=== PATIENT | male | born 1930 | race Caucasian/White ===

== ENCOUNTER 2017-02-18 10:15 | Inpatient (IN) | payer MEDICARE ==
[~2017-02-18] VITALS: Ht 177.8 cm; Wt 61.8 kg
[~2017-02-18 10:15] MED LIST: ALEVE220 M1 PO; ALLEGRA-D 2424 HOUR PO; AUGMENTIN500TAB PO; AZITHROMYCIN500 MG PO; BENZONATATE200 MG PO; C 250 PO; CALCIUM + D PO; CALCIUM PO; CALCIUM500 MG/D PO; CENTRUM SILVER PO; CENTRUM SILVER ULTR1 PO; CETIRIZ/PSE1 TAB PO; COMBIVENT IN; CRESTOR10 MG OR; ENALAPRIL10 MG PO; FLONASE NASAL50 MCG; FLONASE0.05 %; FLUARIX QUADRIV1 IN2 IM; FLUARIX QUADRIV1 INJ IM; FLULAVAL IM; FUROSEMIDE20 MG PO; LIPITOR10 MG PO; LIPITOR40 M1 PO; LIPITOR40 MG PO; LOMOTIL2.5 MG PO; LOPRESSOR 550 MG/TAB PO; MEDDOSEPAK PO; MELATONIN10 MG PO; METOPROL TAR50 MG PO; METRONIDAZOL500 MG PO; MUCINEX600 MG PO; NASONEX50 MCG/AC NAB; NASONEX50 MCG/AC NAS; OMEPRAZOLE20 MG OR; OMEPRAZOLE20 MG PO; PRILOSEC20 MG PO; PROAIR HFA IN; PROCTOZONE-HC2.5 % RE; PROCTOZONE1 CRE RE; ST JOSEPH75 MG OR; TYLENOL 500MG TAB PO; TYLENOL PM PO; VASOTEC10 MG PO; VENTOLIN HF1 INH; VENTOLIN HFA IN; VITAMIN C PO; ZITHROMAX250 MG PO; ZPAK PO; ZYRTEC-D ALG PO; ZYRTEC10 MG PO; [UNRECOGNIZED DRUG - OTHER] PO; [UNRECOGNIZED DRUG - OTHER] PO; [UNRECOGNIZED DRUG - OTHER] PO; [UNRECOGNIZED DRUG - OTHER] PO
[2017-02-18] MEDS ORDERED: PLAVIX75 MG PO (10:32)
[2017-02-18] MEDS ORDERED: CARVEDILOL25 MG PO (10:33)
[2017-02-18] MEDS ORDERED: ZESTRIL40 MG PO (10:33)
[2017-02-18] MEDS ORDERED: BREO ELLIPTA1 INH (10:34)
[2017-02-18] MEDS ORDERED: PREDNISONE10 MG PO (10:34)
[2017-02-18 10:59] LABS: HEMATOCRIT 40.6 % (39.0-50.0); HEMOGLOBIN 13.6 g/dl (14.0-18.0); IMMATURE GRANULOCYTES 0.5 % (0.0-1.0); MEAN CELL VOLUME 95.1 fL CALC (80.0-100.0); MEAN CORPUSCULAR HGB 31.9 pG CALC (26.0-32.0); MEAN CORPUSCULAR HGB CONC 33.5 g/L CALC (32.0-36.0); NEUT# 10.87 thou/uL (1.82-7.42); RED BLOOD COUNT 4.27 mill/uL (4.70-6.10); RED CELL DISTRI WIDTH 13.9 % (11.5-15.5)
[2017-02-18 11:14] LABS: ALBUMIN 3.9 g/dL (3.2-5.0); ALKALINE PHOSPHATASE 78 u/l (38-126); ANION GAP 16 (6-22 (CALC)); BILIRUBIN, TOTAL 0.8 mg/dL (0.0-1.4); BUN 19 mg/dL (8-23); BUN/CREATININE RATIO 19 (12-20 (CALC)); CALCIUM 9.3 mg/dL (8.4-10.2); CARBON DIOXIDE 25 mmol/l (22-30); CHLORIDE 105 mmol/l (95-108); GFR > 60 ML/MIN (>=60 (CALC)); GFR FOR AFR.AMER. > 60 ML/MIN (>=60 (CALC)); GLUCOSE 109 mg/dL (82-115); POTASSIUM 4.4 mmol/l (3.5-5.1); SGOT/AST 28 u/l (19-48); SGPT/ALT 30 u/l (11-66); SODIUM 141 mmol/l (137-146); TOTAL PROTEIN 7.2 g/dL (6.3-8.2)
[2017-02-18 11:19] LABS: INFLUENZA A NONE DETECTED (NONE DETECT); INFLUENZA B NONE DETECTED (NONE DETECT)
[2017-02-18 13:23] LABS: URINE BILIRUBIN - DIPSTICK NEGATIVE (NEGATIVE); URINE BLOOD DIPSTICK NEGATIVE (NEGATIVE); URINE CLARITY CLEAR; URINE COLOR YELLOW; URINE GLUCOSE - DIPSTICK NEGATIVE (NEGATIVE); URINE KETONE NEGATIVE (NEGATIVE); URINE LEUK ESTERASE NEGATIVE (NEGATIVE); URINE NITRITE - DIPSTICK NEGATIVE (Negative); URINE PROTEIN - DIPSTICK NEGATIVE (NEG-TRACE); URINE UROBILINOGEN - DIPSTICK 0.2 E.U./dL (0.2)
[2017-02-18 14:13] VITALS: BP 126/63
[2017-02-18 15:41] LABS: CHOLESTEROL HDL RATIO 3.6 (<4.4 (CALC))
[2017-02-18 16:34] VITALS: BP 93/57
[2017-02-18 19:50] VITALS: BP 100/70
[2017-02-19] VITALS (7 sets, daily range): BP systolic 86–139; BP diastolic 43–80
[2017-02-19 05:45] LABS: HEMATOCRIT 34.2 % (39.0-50.0); HEMOGLOBIN 11.4 g/dl (14.0-18.0); IMMATURE GRANULOCYTES 0.7 % (0.0-1.0); MEAN CELL VOLUME 97.2 fL CALC (80.0-100.0); MEAN CORPUSCULAR HGB 32.4 pG CALC (26.0-32.0); MEAN CORPUSCULAR HGB CONC 33.3 g/L CALC (32.0-36.0); NEUT# 4.32 thou/uL (1.82-7.42); RED BLOOD COUNT 3.52 mill/uL (4.70-6.10); RED CELL DISTRI WIDTH 14.2 % (11.5-15.5)
[2017-02-19 06:04] LABS: ALBUMIN 2.7 g/dL (3.2-5.0); ALKALINE PHOSPHATASE 62 u/l (38-126); ANION GAP 11 (6-22 (CALC)); BILIRUBIN, TOTAL 0.6 mg/dL (0.0-1.4); BUN 15 mg/dL (8-23); BUN/CREATININE RATIO 17 (12-20 (CALC)); CALCIUM 8.3 mg/dL (8.4-10.2); CARBON DIOXIDE 22 mmol/l (22-30); CHLORIDE 112 mmol/l (95-108); CREATININE 0.9 mg/dL (0.7-1.3); GFR > 60 ML/MIN (>=60 (CALC)); GFR FOR AFR.AMER. > 60 ML/MIN (>=60 (CALC)); GLUCOSE 84 mg/dL (82-115); SGOT/AST 16 u/l (19-48); SGPT/ALT 28 u/l (11-66); SODIUM 142 mmol/l (137-146); TOTAL PROTEIN 5.1 g/dL (6.3-8.2)
[2017-02-20 04:53] VITALS: BP 138/80
[2017-02-20 05:56] LABS: HEMATOCRIT 34.4 % (39.0-50.0); HEMOGLOBIN 11.4 g/dl (14.0-18.0); IMMATURE GRANULOCYTES 0.4 % (0.0-1.0); MEAN CELL VOLUME 96.4 fL CALC (80.0-100.0); MEAN CORPUSCULAR HGB 31.9 pG CALC (26.0-32.0); MEAN CORPUSCULAR HGB CONC 33.1 g/L CALC (32.0-36.0); NEUT# 3.42 thou/uL (1.82-7.42); RED BLOOD COUNT 3.57 mill/uL (4.70-6.10); RED CELL DISTRI WIDTH 13.7 % (11.5-15.5)
[2017-02-20 06:12] LABS: ANION GAP 11 (6-22 (CALC)); BUN 12 mg/dL (8-23); BUN/CREATININE RATIO 16 (12-20 (CALC)); CALCIUM 8.3 mg/dL (8.4-10.2); CARBON DIOXIDE 23 mmol/l (22-30); CHLORIDE 111 mmol/l (95-108); CREATININE 0.8 mg/dL (0.7-1.3); GFR > 60 ML/MIN (>=60 (CALC)); GFR FOR AFR.AMER. > 60 ML/MIN (>=60 (CALC)); GLUCOSE 107 mg/dL (82-115); SODIUM 141 mmol/l (137-146)
[2017-02-20 09:12] VITALS: BP 126/63
[2017-02-20 11:31] VITALS: BP 154/85
[2017-02-20 16:39] VITALS: BP 116/74
[2017-02-20 19:00] VITALS: BP 143/80
[2017-02-20 22:00] VITALS: BP 129/77
[2017-02-21 05:02] VITALS: BP 137/80
[2017-02-21 05:48] LABS: ALBUMIN 2.9 g/dL (3.2-5.0); ALKALINE PHOSPHATASE 67 u/l (38-126); ANION GAP 13 (6-22 (CALC)); BILIRUBIN, TOTAL 0.6 mg/dL (0.0-1.4); BUN 8 mg/dL (8-23); BUN/CREATININE RATIO 10 (12-20 (CALC)); CALCIUM 8.6 mg/dL (8.4-10.2); CARBON DIOXIDE 22 mmol/l (22-30); CHLORIDE 111 mmol/l (95-108); CREATININE 0.8 mg/dL (0.7-1.3); GFR > 60 ML/MIN (>=60 (CALC)); GFR FOR AFR.AMER. > 60 ML/MIN (>=60 (CALC)); GLUCOSE 89 mg/dL (82-115); POTASSIUM 4.1 mmol/l (3.5-5.1); SGOT/AST 18 u/l (19-48); SGPT/ALT 32 u/l (11-66); SODIUM 141 mmol/l (137-146); TOTAL PROTEIN 5.3 g/dL (6.3-8.2)
[2017-02-21 05:50] LABS: HEMATOCRIT 35.8 % (39.0-50.0); HEMOGLOBIN 12.1 g/dl (14.0-18.0); IMMATURE GRANULOCYTES 0.4 % (0.0-1.0); MEAN CORPUSCULAR HGB 32.1 pG CALC (26.0-32.0); MEAN CORPUSCULAR HGB CONC 33.8 g/L CALC (32.0-36.0); NEUT# 3.56 thou/uL (1.82-7.42); RED BLOOD COUNT 3.77 mill/uL (4.70-6.10); RED CELL DISTRI WIDTH 13.5 % (11.5-15.5)
[2017-02-21 08:51] VITALS: BP 127/80
[2017-02-21] MEDS ORDERED: LEVAQUIN750 MG PO (08:54)
[2017-02-21] MEDS ORDERED: BRILINTA60 MG PO (08:55)
[2017-02-21 08:58] VITALS: BP 127/80
== END 2017-02-21 10:26 | disposition home or self-care (01) | DRG 194 ==
LOC: ED 10:15 → ED-I 13:10 → ED 13:27 → MS2 13:28
PROVIDERS: Family Medicine; ADMIT Internal Medicine Geriatric Medicine; ATTEND Internal Medicine Geriatric Medicine
DX: J18.9 Pneumonia, unspecified organism (principal); K62.5 Hemorrhage of anus and rectum; I11.0 Hypertensive heart disease with heart failure; I50.9 Heart failure, unspecified; I25.10 Atherosclerotic heart disease of native coronary artery without angina pectoris; J30.9 Allergic rhinitis, unspecified; Z95.1 Presence of aortocoronary bypass graft; Z95.5 Presence of coronary angioplasty implant and graft; T45.525A Adverse effect of antithrombotic drugs, initial encounter
CPT/HCPCS: Q9967

== ENCOUNTER 2017-05-04 07:25 | Inpatient (IN) | payer MEDICARE ==
[~2017-05-04] VITALS: Ht 177.8 cm; Wt 73.6 kg
[~2017-05-04 07:25] MED LIST changes: +BREO ELLIPTA1 INH; +BRILINTA60 MG PO; +CARVEDILOL25 MG PO; +LEVAQUIN750 MG PO; +PLAVIX75 MG PO; +PREDNISONE10 MG PO; +ZESTRIL40 MG PO
--- NOTE | 2017-05-04 07:25 | NUR ---
TO ROOM 10 VIA STRETCHER BY EMS. ALERT. TALKATIVE
[2017-05-04] MEDS ORDERED: LIPITOR20 MG PO (07:50)
[2017-05-04] MEDS ORDERED: OMEPRAZOLE10 MG PO (07:51)
[2017-05-04 08:11] LABS: HEMATOCRIT 41.3 % (39.0-50.0); HEMOGLOBIN 13.7 g/dl (14.0-18.0); IMMATURE GRANULOCYTES 0.3 % (0.0-1.0); MEAN CELL VOLUME 96.5 fL CALC (80.0-100.0); MEAN CORPUSCULAR HGB CONC 33.2 g/L CALC (32.0-36.0); NEUT# 9.16 thou/uL (1.82-7.42); RED BLOOD COUNT 4.28 mill/uL (4.70-6.10); RED CELL DISTRI WIDTH 13.5 % (11.5-15.5)
--- NOTE | 2017-05-04 08:16 | NUR ---
pt given oral hydration, blanket, TV remote
--- NOTE | 2017-05-04 08:36 | NUR ---
pt resting comfortably at this time with family at side. Water given, remote for TV at bedside with call light.
[2017-05-04 08:39] LABS: ALBUMIN 3.9 g/dL (3.2-5.0); ALKALINE PHOSPHATASE 104 u/l (38-126); ANION GAP 16 (6-22 (CALC)); BILIRUBIN, TOTAL 0.6 mg/dL (0.0-1.4); BUN 13 mg/dL (8-23); BUN/CREATININE RATIO 14 (12-20 (CALC)); CALCIUM 9.4 mg/dL (8.4-10.2); CARBON DIOXIDE 24 mmol/l (22-30); CHLORIDE 108 mmol/l (95-108); CREATININE 0.9 mg/dL (0.7-1.3); GFR > 60 ML/MIN (>=60 (CALC)); GFR FOR AFR.AMER. > 60 ML/MIN (>=60 (CALC)); GLUCOSE 125 mg/dL (82-115); POTASSIUM 4.9 mmol/l (3.5-5.1); SGOT/AST 26 u/l (19-48); SGPT/ALT 27 u/l (11-66); SODIUM 143 mmol/l (137-146); TOTAL PROTEIN 6.4 g/dL (6.3-8.2)
[2017-05-04 08:47] LABS: MYOGLOBIN 45 ng/mL (0 - 121)
--- NOTE | 2017-05-04 08:53 | NUR ---
RESTING. DAUGHTER AT BEDSIDE. PERIODIC WET, NONPRODUCTIVE COUGH
[2017-05-04 09:11] LABS: INFLUENZA A POSITIVE (NONE DETECT); INFLUENZA B POSITIVE (NONE DETECT)
--- NOTE | 2017-05-04 09:52 | NUR ---
SBAR PRINTED TO FLOOR
--- NOTE | 2017-05-04 10:07 | NUR ---
REPORT RECVD FROM NIR HERNÁNDEZ. PT IN STABLE CONDITION IN ER ROOM 10. WAITING ON A ROOM UPSTAIRS.
--- NOTE | 2017-05-04 10:11 | NUR ---
REPORT CALLED TO JYOTI KAT
--- NOTE | 2017-05-04 10:11 | NUR ---
REPORT GIVEN TO DRISS
--- NOTE | 2017-05-04 10:32 | NUR ---
Admission Note Report Given to: SBAR PRINTED TO FLOOR Transported by: Wheelchair X Stretcher Transported with: X Nurse Transporter X Patent IV O2 Belt Tender
--- NOTE | 2017-05-04 10:35 | NUR ---
PT ARRIVED FROM ER VIA STRETCHER ACCOMPANIED BY STAFF. IV SITE IS FREE FROM REDNESS OR EDEMA. PT HAS WHEEZING THROUGH OUT. A VERY TIGHT COUGH. CONTINUE TO OSBERVE AND MONITOR.
[2017-05-04 10:40] VITALS: BP 124/77
--- NOTE | 2017-05-04 10:48 | NUR ---
OUT THE ER DOOR AT 1032. TRANSFERED TO [facility] IN STABLE CONDITION. RN @ BEDSIDE.
--- NOTE | 2017-05-04 12:00 | NUR ---
PT IS RESTING IN BED WITH NO DISTRESS NOTED. IV SITE IS FREE FROM REDNESS OR EDEMA. CONTINUE TO OSBERVE AND MONITOR.
--- NOTE | 2017-05-04 14:30 | NUR ---
PT IS RELAXING IN BED WITH NO DISTRESS NOTED.
[2017-05-04 15:36] VITALS: BP 143/72
--- NOTE | 2017-05-04 18:00 | NUR ---
MEDICATION GIVEN TO PT FOR HEADACHE, AND ALSO THE STEROID. CONTINUE TO OSBERVE AND MONITOR.
[2017-05-04 19:08] VITALS: BP 122/71
--- NOTE | 2017-05-04 19:30 | NUR ---
PT WATCHING TV, RESP EVEN AND UNLABORED WITH O2 2L IN PLACE. PT HAS EXERTIONAL SHORTNESS OF BREATH WHEN ASSISTED TO THE BATHROOM. PT ASSISTED BACK TO BED, O2 APPLIED. NO DISTRESS NOTED. WHEEZING IS NOTED THROUGHOUT. ABD IS SOFT, BOWEL SOUNDS PRESENT. PEDAL PULSES PALPATED BILAT. IV PATENT LFA WITH NS. PT DENIES ANY PAIN OR DISCOMFORT. FREQUENT ROUNDS MADE.CALL LIGHT WITHIN REACH. SAFETY PRECAUTIONS REINFORCED.
[2017-05-04 20:25] LABS: URINE BILIRUBIN - DIPSTICK NEGATIVE (NEGATIVE); URINE BLOOD DIPSTICK NEGATIVE (NEGATIVE); URINE CLARITY CLEAR; URINE COLOR YELLOW; URINE GLUCOSE - DIPSTICK NEGATIVE (NEGATIVE); URINE KETONE NEGATIVE (NEGATIVE); URINE LEUK ESTERASE NEGATIVE (NEGATIVE); URINE NITRITE - DIPSTICK NEGATIVE (Negative); URINE PROTEIN - DIPSTICK NEGATIVE (NEG-TRACE); URINE UROBILINOGEN - DIPSTICK 0.2 E.U./dL (0.2)
--- NOTE | 2017-05-05 00:20 | NUR ---
PT APPEARS TO BE ASLEEP AT THIS TIME. RESP EVEN AND UNLABORED, O2 IN PLACE. NO DISTRESS NOTED. CALL LIGHT WITHIN REACH.
[2017-05-05 04:04] VITALS: BP 151/82
--- NOTE | 2017-05-05 04:04 | NUR ---
PT WOKE FOR MORNING VITALS. PT HAS NO COMPLAINT OF PAIN OR DISCOMFORT. RESP EVEN AND UNLABORED WITH O2 IN PLACE. IV PATENT IN LFA. ASSESSMENT UNCHANGED. CALL LIGHT WITHIN REACH.
--- NOTE | 2017-05-05 06:04 | NUR ---
PT INSTRUCTED TO USE THE URINAL FOR ACCURATE I & O. PT DAILY WT; 73.6 KG.
--- NOTE | 2017-05-05 06:06 | NUR ---
PT IS HAVING SOME COUGHING. PT HAD SMALL AMOUNT OF THIN WHITE/YELLOW SPUTUM ON TISSUE. PT CONTINUING TO COUGH/WHEEZING, PRN BREATHING TX ORDERED. O2 IN PLACE.
--- NOTE | 2017-05-05 07:22 | NUR ---
REPORT GIVEN TO JYOTI KAT. PT RESING IN BED WITH O2 IN PLACE. NO DISTRESS NOTED. ASSESSMENT UNCHANGED. CALL LIGHT WITHIN REACH.
[2017-05-05 07:35] VITALS: BP 140/81
--- NOTE | 2017-05-05 08:00 | NUR ---
ASSESSMENT IS COMPLETED: IV SITE IS FREE FROM REDNESS OR EDEMA. PT IS WHEEZING THROUGH OUT. SOB ON EXERTION. C/O R RIB PAIN FROM COUGHING. CONTINUE TO OSBERVE AND MONITOR.
--- NOTE | 2017-05-05 09:00 | NUR ---
PT WAS LYING IN BED ON HIS RIGHT SIDE. PT WAS A&O X3. FACIAL GRIMACING WAS NOTED AND HE REPORTED A PAIN LEVEL OF 15/10, ONLY WHEN HE COUGHS. HE TURNED SUPINE AND WAS IN VISIBLE DISTRESS WHEN HE COUGHED. ASKED PT IF HE WANTED TO SIT UP IN BED AND HE STATED HE JUST WANTED TO TRY AND REST. UPON ENTERING THE ROOM A SHORT WHILE LATER THE PT WAS IN A SEMI-OLSEN POSITION, WAS CONTINUING TO COUGH AND HOLDING HIS ABDOMEN DUE TO PAIN WHEN COUGHING. VITAL WERE TAKEN AND WERE WITHIN NORMAL RANGE. LATER, HE WAS ABLE TO SIT UP AND EAT BREAKFAST STATING THAT HE FINALLY HAD AN APPETITE. PT ASSESSMENT WAS COMPLETED. PT WAS IN VISIBLE DISTRESS FROM COUGHING WHILE I WAS PERFORMING THE ASSESSMENT. WHEEZING NOTED IN LUNGS AND BREATHING WAS LABORED. PT IS AT 94% ON O2 VIA NC @2L. ALL PULSES WERE PRESENT AND STRONG, EXCEPT FOR PEDAL, WHICH WERE PRESENT, BUT SOMEWHAT WEAK. PT SKIN COLOR, TEMP, TURGOR AND CAPILLARY REFILL WERE NORMAL. NO EDEMA NOTED. BOWELS SOUNDS ACTIVE. PT HAS HISTORY OF CATARACTS, BUT PUPILS APPEARED PERRL. PAIN REPORTED NO PAIN EXCEPT WHEN COUGHING. HEART RATE AND RHYTHM WERE GOOD. PT PAIN WAS REPORTED TO NURSE NORTH LPN. PT WAS MEDICATED AND APPEARS TO BE RESTING MORE COMFORTABLY AT THIS TIME. PT BREATHING HAS IMPROVED FOLLOWING MEDICATION. NEB TREATMENT HAS BEEN ORDERED. CALL LIGHT WAS LEFT WITHIN REACH.
[2017-05-05 09:13] LABS: HEMATOCRIT 36.3 % (39.0-50.0); IMMATURE GRANULOCYTES 0.8 % (0.0-1.0); MEAN CELL VOLUME 96.3 fL CALC (80.0-100.0); MEAN CORPUSCULAR HGB 31.8 pG CALC (26.0-32.0); MEAN CORPUSCULAR HGB CONC 33.1 g/L CALC (32.0-36.0); NEUT# 11.17 thou/uL (1.82-7.42); RED BLOOD COUNT 3.77 mill/uL (4.70-6.10); RED CELL DISTRI WIDTH 13.7 % (11.5-15.5)
[2017-05-05 09:28] LABS: ANION GAP 14 (6-22 (CALC)); BUN 15 mg/dL (8-23); BUN/CREATININE RATIO 19 (12-20 (CALC)); CALCIUM 8.6 mg/dL (8.4-10.2); CARBON DIOXIDE 22 mmol/l (22-30); CHLORIDE 110 mmol/l (95-108); CREATININE 0.8 mg/dL (0.7-1.3); GFR > 60 ML/MIN (>=60 (CALC)); GFR FOR AFR.AMER. > 60 ML/MIN (>=60 (CALC)); GLUCOSE 194 mg/dL (82-115); MAGNESIUM 1.8 mg/dL (1.6-2.3); SODIUM 142 mmol/l (137-146)
[2017-05-05 11:45] VITALS: BP 140/81
--- NOTE | 2017-05-05 12:30 | NUR ---
PT HAS BEEN RELAXING IN BED WITH NO DISTRESS AT THIS TIME. IV SITE IS FREE FROM REDNESS O REDEMA.
--- NOTE | 2017-05-05 17:00 | NUR ---
PT IS RELAXING IN BED WITH NO DISTRESS NOTED. IV SITE IS FREE FROM REDNESS OR EDEMA. PT HAD A LARGE BM SOFT BROWN. VOIDING 500ML OF ESSIE UA
[2017-05-05 17:23] VITALS: BP 129/71
--- NOTE | 2017-05-05 20:00 | NUR ---
PATIENT RESTING IN BED AT THIS TIME WATCHING TV. PATIENT IS AWAKE ALERT AND ORIENTEDX3 WITH O2 VIA NASAL CANNULA IN PLACE. IVF NS PATENT AND INFUSING AT 80CC/HR VIA LEFT FOREARM SITE. SITE APPEARS HEALTHY AT THIS TIME WITH GOOD BLOOD RETURN. PATIENT WITH NON-PRODUCTIVE COUGH. PATIENT STATES THAT HE HAD A BM TONIGHT. O2 SAT 95% ON O2-WILL REMOVE AND RECHECK. SAFETY PRECAUTIONS REINFORCED. CALL LIGHT IN REACH. WILL CONT TO MONITOR.
[2017-05-05 20:13] VITALS: BP 122/75
[2017-05-05 23:50] VITALS: BP 149/88
--- NOTE | 2017-05-06 | NUR ---
PATEINT RESTING IN BED AT THIS TIME-APPEARS SLEEPING. CALL LIGHT IN REACH. WILL CONT TO MONITOR.
[2017-05-06 04:20] VITALS: BP 170/90
--- NOTE | 2017-05-06 04:49 | NUR ---
PATIENT BP-170/90 AT THIS TIME. PATIENT MEDICATED WITH LISINOPRIL AND LASIX PO EARLY FOR ELEVATED BP. PATIENT WITH NON-PRODUCTIVE COUGH-O2 REAPPLIED. OFFERED COUGH MED BUT PAIENT DECLINED AT THIS TIME. PATIENT COURSE THROUGHOUT. RT CALLED FOR NEB TREATMENT. WILL CONT TO MONITOR.
[2017-05-06 05:58] VITALS: BP 150/80
[2017-05-06 06:44] LABS: HEMATOCRIT 35.1 % (39.0-50.0); HEMOGLOBIN 11.5 g/dl (14.0-18.0); IMMATURE GRANULOCYTES 0.5 % (0.0-1.0); MEAN CELL VOLUME 96.4 fL CALC (80.0-100.0); MEAN CORPUSCULAR HGB 31.6 pG CALC (26.0-32.0); MEAN CORPUSCULAR HGB CONC 32.8 g/L CALC (32.0-36.0); NEUT# 9.72 thou/uL (1.82-7.42); RED BLOOD COUNT 3.64 mill/uL (4.70-6.10); RED CELL DISTRI WIDTH 13.7 % (11.5-15.5)
[2017-05-06 06:58] LABS: ANION GAP 16 (6-22 (CALC)); BUN 24 mg/dL (8-23); BUN/CREATININE RATIO 29 (12-20 (CALC)); CALCIUM 8.6 mg/dL (8.4-10.2); CARBON DIOXIDE 19 mmol/l (22-30); CHLORIDE 111 mmol/l (95-108); CREATININE 0.8 mg/dL (0.7-1.3); GFR > 60 ML/MIN (>=60 (CALC)); GFR FOR AFR.AMER. > 60 ML/MIN (>=60 (CALC)); GLUCOSE 155 mg/dL (82-115); MAGNESIUM 1.9 mg/dL (1.6-2.3); POTASSIUM 4.2 mmol/l (3.5-5.1); SODIUM 142 mmol/l (137-146)
--- NOTE | 2017-05-06 07:00 | NUR ---
RECEIVED BEDSIDE REPORT FROM ALISON LOYOLA. RESTING IN BED WITH EYES CLOSED, AWAKENS EASILY. RESPS EVEN AND UNLABORED ON O2 VIA NC. NON PRODUCTIVE COUGH CONTINUES. #22 LFA INFUSING WITHOUT DIFFICULTY, SITE APPEARS HEALTHY. WILL MEDICATE WITH ROBITUSSIN PER MAR. PLAN OF CARE DISCUSSED. SAFETY PRECAUTIONS REINFORCED. BED IN LOWEST POSITION WITH WHEELS LOCKED. CALL LIGHT WITHIN REACH. WILL CONTINUE TO MONITOR.
[2017-05-06 07:57] VITALS: BP 173/98
--- NOTE | 2017-05-06 11:25 | NUR ---
DR MARCELO IN WITH PT, NEW ORDERS RECEIVED.
[2017-05-06] MEDS ORDERED: AUGMENTIN875TAB PO (11:39)
[2017-05-06] MEDS ORDERED: MUCINEX600 MG PO (11:40)
--- NOTE | 2017-05-06 11:40 | NUR ---
TO RADIOLOGY IN STABLE CONDITION VIA WHEELCHAIR ACCOMPANIED BY AMY OLIVEIRA
[2017-05-06] MEDS ORDERED: ROBITUSSIN AC10 ML PO (11:41)
[2017-05-06] MEDS ORDERED: PREDNISONE20 MG PO (11:43)
--- NOTE | 2017-05-06 11:50 | NUR ---
FROM RADIOLOGY VIA WHEELCHAIR ACCOMPANIED BY BUSINESS SERVICES DIRECTOR. AMBULATED TO BED WITH STEADY GAIT. RESPS EVEN AND UNLABORED ON O2 VIAN NC. C/O NON PRODUCTIVE COUGH. WILL MEDICATE PER JUL. CALL LIGHT WITHIN REACH. WILL CONTINUE TO MONITOR.
[2017-05-06 12:06] VITALS: BP 173/98
--- NOTE | 2017-05-06 17:05 | NUR ---
Discharge instructions given. Patient verbalizes understanding of same. Discharged in stable condition via Wheelchair to Home with family. All belongings sent with pt.
== END 2017-05-06 17:05 | disposition home or self-care (01) | DRG 195 ==
LOC: ED 07:25 → ED-I 08:58 → ED 09:53 → MS2 09:54
PROVIDERS: Emergency Medicine; Nurse Practitioner Family; ADMIT Internal Medicine; ATTEND Internal Medicine
DX: J10.08 Influenza due to other identified influenza virus with other specified pneumonia (principal); J44.0 Chronic obstructive pulmonary disease with (acute) lower respiratory infection; J15.9 Unspecified bacterial pneumonia; I11.0 Hypertensive heart disease with heart failure; I50.9 Heart failure, unspecified; E78.5 Hyperlipidemia, unspecified; K21.9 Gastro-esophageal reflux disease without esophagitis; M19.90 Unspecified osteoarthritis, unspecified site; I25.10 Atherosclerotic heart disease of native coronary artery without angina pectoris; I25.2 Old myocardial infarction; Z79.02 Long term (current) use of antithrombotics/antiplatelets; Z95.1 Presence of aortocoronary bypass graft; Z87.891 Personal history of nicotine dependence; Z95.5 Presence of coronary angioplasty implant and graft
CPT/HCPCS: J1650

== ENCOUNTER 2018-05-21 10:34 | Observation (INO) | payer MEDICARE ==
[~2018-05-21] VITALS: Ht 175.3 cm; Wt 68.3 kg
[~2018-05-21 10:34] MED LIST changes: +AUGMENTIN875TAB PO; +LIPITOR20 MG PO; +OMEPRAZOLE10 MG PO; +PREDNISONE20 MG PO; +ROBITUSSIN AC10 ML PO
--- NOTE | 2018-05-21 10:50 | NUR ---
PT ARRIVED TO FLOOR VIA WHEELCHAIR ACCOMPANIED BY VOLUNTEER. AMBULATES INDEPENDENTLY, WITH STEADY GAIT. ALERT AND ORIENTED. PT ORIENTED TO ROOM AND EQUIPMENT. CALL LIGHT REVIEWED AND IN REACH. PLAN OF CARE DISCUSSED. PT DENIES PAIN. REPORTING OF CONCERNS ENCOURAGED. #22 LFA INSERTED. D5 1/2 NS @ 75 ML/HR STARTED. PT REPORTS NONPRODUCTIVE COUGH, ORDER TO SPUTUM CX REVIEWED. PT STATES UNDERSTANDING.
[2018-05-21] MEDS ORDERED: ENTRESTO 49-511 TAB PO (11:18)
[2018-05-21] MEDS ORDERED: IPRATROPIU0.5 MG/3 M IN (11:19)
[2018-05-21] MEDS ORDERED: AMOXICILLIN250 M1 PO (11:19)
[2018-05-21] MEDS ORDERED: FLONASE AL50 MCG/ACT (11:22)
[2018-05-21 12:19] LABS: HEMATOCRIT 44.8 % (39.0-50.0); IMMATURE GRANULOCYTES 0.1 % (0.0-5.0); MEAN CELL VOLUME 94.5 fL CALC (80.0-100.0); MEAN CORPUSCULAR HGB 31.6 pG CALC (26.0-32.0); MEAN CORPUSCULAR HGB CONC 33.5 g/L CALC (32.0-36.0); NEUT# 3.7 thou/uL (1.82-7.42); RED BLOOD COUNT 4.74 mill/uL (4.70-6.10); RED CELL DISTRI WIDTH 13.1 % (11.5-15.5)
[2018-05-21 12:54] LABS: ANION GAP 16 (6-22 (CALC)); BUN 18 mg/dL (8-23); BUN/CREATININE RATIO 17 (12-20 (CALC)); CARBON DIOXIDE 21 mmol/l (22-30); CHLORIDE 106 mmol/l (95-108); CREATININE 1.1 mg/dL (0.7-1.3); GFR > 60 ML/MIN (>=60 (CALC)); GFR FOR AFR.AMER. > 60 ML/MIN (>=60 (CALC)); POTASSIUM 4.6 mmol/l (3.5-5.1); SODIUM 138 mmol/l (137-146)
--- NOTE | 2018-05-21 14:00 | NUR ---
PT LEFT FLOOR VIA WHEELCHAIR ACCOMPANIED BY VOLUNTEER TO XRAY.
--- NOTE | 2018-05-21 14:25 | NUR ---
PT RETURNED TO ROOM VIA WHEELCHAIR, REPORTS TOLERATING TESTING WELL. NO COMPLAINTS AT THIS TIME. SITTING IN CHAIR AT BEDSIDE.
[2018-05-21 15:39] VITALS: BP 135/78
--- NOTE | 2018-05-21 19:36 | NUR ---
report recieved from Ector Shah.
[2018-05-21 19:59] VITALS: BP 131/66
--- NOTE | 2018-05-21 20:30 | NUR ---
PT RESTING IN BED. A/OX3.PERRLA. ABLE TO VOICE NEEDS . NO PAIN VOICED. LUNGS CTA. PULSES PRESENT IN ALL EXTREMITIES. BOWEL SOUNDS PRESENT. POC DISCUSSED. PT VOICED UNDERSTANDING. BED IN LOWEST POSITION. CALL RATLIFF IN REACH. WILL MONITOR.
[2018-05-22 04:57] VITALS: BP 149/91
--- NOTE | 2018-05-22 05:21 | NUR ---
pt resting in bed throughout the night. no c/o pain. no distress noted. iv patent. no s/s of infection. bed in lowest position. call light in reach. will monitor.
[2018-05-22 05:36] LABS: HEMATOCRIT 43.7 % (39.0-50.0); IMMATURE GRANULOCYTES 0.3 % (0.0-5.0); MEAN CELL VOLUME 93.2 fL CALC (80.0-100.0); MEAN CORPUSCULAR HGB CONC 34.3 g/L CALC (32.0-36.0); NEUT# 5.21 thou/uL (1.82-7.42); RED BLOOD COUNT 4.69 mill/uL (4.70-6.10)
[2018-05-22 05:49] LABS: ALBUMIN 3.7 g/dL (3.2-5.0); ALKALINE PHOSPHATASE 92 u/l (38-126); ANION GAP 16 (6-22 (CALC)); BILIRUBIN, TOTAL 0.4 mg/dL (0.0-1.4); BUN 20 mg/dL (8-23); BUN/CREATININE RATIO 23 (12-20 (CALC)); CALCULATED LDLCHOLESTEROL 117 mg/dL (62-129 (CALC)); CARBON DIOXIDE 23 mmol/l (22-30); CHLORIDE 104 mmol/l (95-108); CHOLESTEROL HDL RATIO 3.9 (<4.4 (CALC)); CREATININE 0.9 mg/dL (0.7-1.3); GFR > 60 ML/MIN (>=60 (CALC)); GFR FOR AFR.AMER. > 60 ML/MIN (>=60 (CALC)); HDL CHOLESTEROL 45 mg/dL (>=40); POTASSIUM 4.8 mmol/l (3.5-5.1); SGOT/AST 25 u/l (19-48); SODIUM 139 mmol/l (137-146); TOTAL CHOLESTEROL 173 mg/dl (0-199); TOTAL PROTEIN 6.5 g/dL (6.3-8.2); TOTAL TRIGLYCERIDES 55 mg/dl (30-149); VLDL CHOLESTROL 11 mg/dl (0-38 (CALC))
--- NOTE | 2018-05-22 07:00 | NUR ---
PT REPORT RECIEVED FROM LAKSHMIRN. PT RESTING. NO S/S OF DISTRESS. CALL LIGHT IN REACH. WILL CONTINUE TO MONITOR
[2018-05-22 07:38] VITALS: BP 136/91
--- NOTE | 2018-05-22 07:38 | NUR ---
PT A/O X3. SPEECH IS CLEAR. NONPRODUCTIVE COUGH NOTED. RESP EVEN AND UNLABORED. LUNG SOUNDS CLEAR. PT REQUESTING TO TAKE OFF NASAL CANULLA. O2 READING AT 99%. BOWEL SOUNDS ACTIVE X4. STRONG RADIAL AND PEDAL PULSES. #22 LFA D5 1/2 NS @75. SITE APPEARS HEALTHY. PT DENIES ANY PAIN OR NEEDS. PT IS READY TO GO HOME. POC DISCUSSED. SAFETY PRECAUTIONS IN PLACE. CALL LIGHT IN REACH. WILL CONTINUE TO MONITOR.
[2018-05-22 07:43] VITALS: BP 136/91
[2018-05-22] MEDS ORDERED: MEDDOSEPAK PO (12:58)
[2018-05-22] MEDS ORDERED: LEVAQUIN750 MG PO (12:59)
--- NOTE | 2018-05-22 13:08 | NUR ---
PT RESTING IN BED. NO C/O PAIN OR NEEDS. PT WANTS TO CONTINUE TAKING A NAP. CALL LIGHT IN REACH. WILL CONTINUE TO MONITOR.
--- NOTE | 2018-05-22 15:06 | NUR ---
D/C INSTRUCTIOND DISCUSSED W/ PT WELL PRESCRIPTIONS. PT STATES UNDERSTANDING. IV REMOVED. CATHETER INTACT. PT GETTING DRESSED AT THIS TIME. VOLUNTEER TO WHEEL PT DOWNSTAIRS
--- NOTE | 2018-05-22 15:50 | NUR ---
Discharge instructions given. Patient verbalizes understanding of same. Discharged in stable condition via Wheelchair to Home with *Other. All belongings sent with pt.
== END 2018-05-22 15:48 | disposition home or self-care (01) ==
LOC: MS2 10:34
PROVIDERS: ADMIT Internal Medicine Geriatric Medicine; ATTEND Internal Medicine Geriatric Medicine
DX: J40 Bronchitis, not specified as acute or chronic (principal); I25.10 Atherosclerotic heart disease of native coronary artery without angina pectoris; I11.0 Hypertensive heart disease with heart failure; I50.9 Heart failure, unspecified; E78.5 Hyperlipidemia, unspecified; J30.9 Allergic rhinitis, unspecified; Z95.5 Presence of coronary angioplasty implant and graft; Z95.1 Presence of aortocoronary bypass graft; Z95.2 Presence of prosthetic heart valve

== ENCOUNTER 2018-10-05 11:04 | Observation (INO) | payer MEDICARE ==
[~2018-10-05] VITALS: Ht 175.3 cm; Wt 73.2 kg
[~2018-10-05 11:04] MED LIST changes: +AMOXICILLIN250 M1 PO; -C 250 PO; +ENTRESTO 49-511 TAB PO; +FLONASE AL50 MCG/ACT; +IPRATROPIU0.5 MG/3 M IN; +VITAMIN C1000 MG PO
[2018-10-05 11:42] VITALS: BP 114/73
[2018-10-05 11:45] LABS: URINE BILIRUBIN - DIPSTICK NEGATIVE (NEGATIVE); URINE BLOOD DIPSTICK NEGATIVE (NEGATIVE); URINE COLOR YELLOW; URINE GLUCOSE - DIPSTICK NEGATIVE (NEGATIVE); URINE KETONE NEGATIVE (NEGATIVE); URINE LEUK ESTERASE NEGATIVE (NEGATIVE); URINE NITRITE - DIPSTICK NEGATIVE (Negative); URINE PROTEIN - DIPSTICK NEGATIVE (NEG-TRACE); URINE UROBILINOGEN - DIPSTICK 0.2 E.U./dL (0.2)
[2018-10-05 11:48] LABS: HEMATOCRIT 47.2 % (39.0-50.0); HEMOGLOBIN 15.4 g/dl (14.0-18.0); IMMATURE GRANULOCYTES 0.5 % (0.0-5.0); MEAN CELL VOLUME 94.8 fL CALC (80.0-100.0); MEAN CORPUSCULAR HGB 30.9 pG CALC (26.0-32.0); MEAN CORPUSCULAR HGB CONC 32.6 g/L CALC (32.0-36.0); NEUT# 5.24 thou/uL (1.82-7.42); RED BLOOD COUNT 4.98 mill/uL (4.70-6.10); RED CELL DISTRI WIDTH 13.1 % (11.5-15.5)
[2018-10-05 12:23] LABS: ANION GAP 12 (6-22 (CALC)); BUN 24 mg/dL (8-23); BUN/CREATININE RATIO 24 (12-20 (CALC)); CHLORIDE 105 mmol/l (95-108); GFR > 60 ML/MIN (>=60 (CALC)); GFR FOR AFR.AMER. > 60 ML/MIN (>=60 (CALC)); SODIUM 141 mmol/l (137-146)
[2018-10-05 12:24] LABS: CARBON DIOXIDE 29 mmol/l (22-30)
--- NOTE | 2018-10-05 13:11 | NUR ---
PT ARRIVED ON UNIT VIA W/C TRANSPORTED BY VOLUNTEER DIRECT ADMIT, ALERT AND ORIENTED X 4, DENIED PAIN BUT STATED HE HAS BEEN COUGHING FOR LAST 3 WEEKS AND HAS NO IMPROVEMENTS. ORIENTED TO ROOM AND CALL RATLIFF, WILL CONTINUE TO MONITOR.
[2018-10-05 14:50] VITALS: BP 101/60
[2018-10-05 19:14] VITALS: BP 128/76
--- NOTE | 2018-10-05 21:02 | NUR ---
PT. SITTING UP IN BED WITH NO DISTRESS NOTED; DENIES NEEDS/PAIN. UPDATED WITH POC. ASSESSMENT COMPLETED. IV SITE PATENT AND ORDERED IVF INFUSING. SCHED MEDICATIONS GIVEN. ENOCOURAGED TO CALL FOR ANY NEEDS. CALL LIGHT IS IN REACH. WILL CONTINUE TO MONITOR.
--- NOTE | 2018-10-05 23:09 | NUR ---
PT. SITTING UP IN BED WITH NO DISTRESS NOTED WATCHING TV. PT. REPORTING THAT HE NEEDS SOMETHING FOR SLEEP ALONG WITH OTHER NIGHT TIME MEDICATIONS THAT HE TAKES AT HOME. CALLED DR. NEWMAN AND NEW ORDERS RECEIVED AND TO BE CARRIED OUT.
[2018-10-05 23:58] VITALS: BP 151/85
[2018-10-06 03:42] VITALS: BP 138/82
--- NOTE | 2018-10-06 03:42 | NUR ---
PT. DENIES NEEDS/PAIN. VSS. DAILY WT. OBTAINED. ENCOURAGED TO CALL FOR ANY NEEDS. CALL LIGHT IS IN REACH.
[2018-10-06 06:54] LABS: HEMATOCRIT 43.1 % (39.0-50.0); HEMOGLOBIN 14.5 g/dl (14.0-18.0); IMMATURE GRANULOCYTES 0.5 % (0.0-5.0); MEAN CELL VOLUME 93.7 fL CALC (80.0-100.0); MEAN CORPUSCULAR HGB 31.5 pG CALC (26.0-32.0); MEAN CORPUSCULAR HGB CONC 33.6 g/L CALC (32.0-36.0); NEUT# 7.5 thou/uL (1.82-7.42); RED BLOOD COUNT 4.6 mill/uL (4.70-6.10)
[2018-10-06 07:00] LABS: ALBUMIN 3.6 g/dL (3.2-5.0); ALKALINE PHOSPHATASE 96 u/l (38-126); ANION GAP 11 (6-22 (CALC)); BILIRUBIN, TOTAL 0.5 mg/dL (0.0-1.4); BUN 24 mg/dL (8-23); BUN/CREATININE RATIO 32 (12-20 (CALC)); CALCULATED LDLCHOLESTEROL 89 mg/dL (62-129 (CALC)); CHLORIDE 110 mmol/l (95-108); CHOLESTEROL HDL RATIO 2.9 (<4.4 (CALC)); CREATININE 0.8 mg/dL (0.7-1.3); GFR > 60 ML/MIN (>=60 (CALC)); GFR FOR AFR.AMER. > 60 ML/MIN (>=60 (CALC)); HDL CHOLESTEROL 53 mg/dL (>=40); POTASSIUM 4.1 mmol/l (3.5-5.1); SGOT/AST 17 u/l (19-48); SODIUM 139 mmol/l (137-146); TOTAL CHOLESTEROL 155 mg/dl (0-199); TOTAL PROTEIN 6.2 g/dL (6.3-8.2); TOTAL TRIGLYCERIDES 63 mg/dl (30-149); VLDL CHOLESTROL 13 mg/dl (0-38 (CALC))
[2018-10-06 07:03] LABS: CARBON DIOXIDE 22 mmol/l (22-30)
--- NOTE | 2018-10-06 08:00 | NUR ---
REPORT WAS RECEIVED FROM GENESIS. ASSESSMENT DONE. PT IS A&O X3. TELE IN PLACE . PT DENIES PAIN. IVF INFUSING WELL. CALL LIGHT IN REACH.
[2018-10-06 08:21] VITALS: BP 152/83
[2018-10-06 11:30] VITALS: BP 141/85
--- NOTE | 2018-10-06 12:00 | NUR ---
PT IS SETUP TO EAT HIS LUNCH WITH NO S/S OF DISTRESS NOTED. PT DENIES NEEDS AT THIS TIME. CALL LIGHT IN REACH.
--- NOTE | 2018-10-06 14:26 | NUR ---
ED HAD CALLED THAT PT PULSE WAS 160 THEN WENT TO 130. CHECKED PT AND PT IS AMBULATING IN THE ROOM WITH NO S/S OF DISTRESS NOTED. PT STATED I'M JUST WALKING THEN WENT BACK TO BED. PULSE IS 95 AND O2 IS 96% RA. PT DENIES NEEDS. CALL LIGHT IN REACH.
[2018-10-06 16:00] VITALS: BP 119/61
--- NOTE | 2018-10-06 16:15 | NUR ---
PT IS RESTING IN BED. PT DENIES PAIN. PT DENIES NEEDS AT THIS TIME. TELE IN PLACE. CALL LIGHT IN REACH.
[2018-10-06 17:40] LABS: URINE BILIRUBIN - DIPSTICK NEGATIVE (NEGATIVE); URINE BLOOD DIPSTICK NEGATIVE (NEGATIVE); URINE COLOR YELLOW; URINE GLUCOSE - DIPSTICK >=1000 mg/dL (NEGATIVE); URINE KETONE NEGATIVE (NEGATIVE); URINE LEUK ESTERASE NEGATIVE (Negative); URINE NITRITE - DIPSTICK NEGATIVE (Negative); URINE PH 5.5 (4.5-8.0); URINE PROTEIN - DIPSTICK NEGATIVE (NEG-TRACE); URINE UROBILINOGEN - DIPSTICK 0.2 E.U./dL (0.2)
[2018-10-06 17:42] LABS: URINE CLARITY CLEAR
--- NOTE | 2018-10-06 19:30 | NUR ---
PATIENT RESTING IN BED AT THIS TIME-AWAKE ALERT AND ORIENTEDX3. IV SITE TO LEFT FOREARM INTACT WITH IVF NS PATENT AND INFUSING AT 80CC/HR. SITE APPEARS HEALTHY AT THIS TIME. TELE MONITOR IN PLACE. SAFETY PRECAUTIONS REINFORCED. CALL LIGHT IN REACH. WILL CONT TO MONITOR.
[2018-10-06 19:31] VITALS: BP 159/83
--- NOTE | 2018-10-06 22:30 | NUR ---
PATIENT C/O INDIGESTION-MEDICATED WITH MAALOX 30CC PO FOR INDIGESTION. WATCHING TV AT THIS TIME. INSTRUCTED PATIENT THAT HE NEEDS TO HAVE FAMILY BRING IN HIS ENTRESTO SO PHARM CAN PROFILE IT AND HE CAN TAKE ORDERED BID. VERBALIZES UNDERSTANDING. CALL LIGHT IN REACH. WILL CONT TO MONITOR.
[2018-10-06 23:34] VITALS: BP 150/79
--- NOTE | 2018-10-07 | NUR ---
PATIENT RESTING IN BED. MEDICATED FOR SLEEP WITH RESTORIL 15MG PO FOR SLEEP. SOLU-MEDROL GIVEN ORDERED. CALL LIGHT IN REACH. WILL CONT TO MONITOR.
--- NOTE | 2018-10-07 03:44 | NUR ---
RECIEVED CALL FROM ER THAT PATIENT WITH 5BEAT RUN OF V-TACH. RESPONDED TO PATIENT ROOM-PATIENT WITH NO COMPLAINTS AT THIS TIME. NO CHEST PAIN NO PALPITATIONS. VS TAKEN AND RECORDED. IVF PATENT AND INFUSING AT 80CC/HR. TELE MONITOR IN PLACE-NOW SHOWING SR-75. CALL LIGHT IN REACH. WILL CONT TO MONITOR.
[2018-10-07 04:21] VITALS: BP 150/82
[2018-10-07 05:23] LABS: HEMATOCRIT 39.6 % (39.0-50.0); IMMATURE GRANULOCYTES 0.7 % (0.0-5.0); MEAN CORPUSCULAR HGB 31.2 pG CALC (26.0-32.0); MEAN CORPUSCULAR HGB CONC 32.8 g/L CALC (32.0-36.0); NEUT# 11.59 thou/uL (1.82-7.42); RED BLOOD COUNT 4.17 mill/uL (4.70-6.10); RED CELL DISTRI WIDTH 13.4 % (11.5-15.5)
[2018-10-07 05:38] LABS: ANION GAP 13 (6-22 (CALC)); BUN 23 mg/dL (8-23); BUN/CREATININE RATIO 31 (12-20 (CALC)); CARBON DIOXIDE 22 mmol/l (22-30); CHLORIDE 111 mmol/l (95-108); CREATININE 0.7 mg/dL (0.7-1.3); GFR > 60 ML/MIN (>=60 (CALC)); GFR FOR AFR.AMER. > 60 ML/MIN (>=60 (CALC)); POTASSIUM 4.3 mmol/l (3.5-5.1); SODIUM 141 mmol/l (137-146)
--- NOTE | 2018-10-07 08:30 | NUR ---
ASSESSMENT DONE. TELE IN PLACE. PT IS A&O X3. PT DENIES PAIN AT THIS TIME. IVF INFUSING WELL. CALL LIGHT IN REACH.
[2018-10-07 09:00] VITALS: BP 153/78
[2018-10-07 11:00] VITALS: BP 129/69
--- NOTE | 2018-10-07 12:03 | NUR ---
PT STATED THAT THE COUGH MEDICATION HELPED HIM. PT DENIES PAIN AT THIS TIME. PT DENIES NEEDS AT THIS TIME. CALL LIGHT IN REACH.
--- NOTE | 2018-10-07 15:53 | NUR ---
MEDICATED PT WITH ROBITUSSIN FOR HIS COUGH. PT DENIES PAIN. PT DENIES ANY OTHER NEEDS AT THIS. TELE IN PLACE. CALL LIGHT IN REACH.
[2018-10-07 16:00] VITALS: BP 149/88
--- NOTE | 2018-10-07 19:30 | NUR ---
PATIENT RESTING IN BED WATCHING TV ON RA. AWAKE ALERT AND ORIENTEDX3. PATIENT O2 OFF AT THIS TIME. TELE MONITOR IN PLACE. IVF PATENT AND INFUSING VIA LEFT FOREARM SITE ORDERED. STILL WILL COUGH BUT IMPROVED SINCE TAKING COUGH MEDS. LUNGS ARE CLEAR/DIMINISHED AT THIS TIME. CALL LIGHT IN REACH. WILL CONT TO MONITOR.
[2018-10-07 19:49] VITALS: BP 140/79
--- NOTE | 2018-10-07 21:59 | NUR ---
PATIENT RESTING IN BED-MEDICATED FOR SLEEP WITH RESTORIL 15MG PO. SAFETY PRECAUTIONS REINFORCED. CALL LIGHT IN REACH. WILL CONT TO MONITOR.
[2018-10-07 23:50] VITALS: BP 123/74
--- NOTE | 2018-10-08 01:00 | NUR ---
PATIENT APPEARS SLEEPING AT THIS TIME-POSITIONED ON RIGHT SIDE WITH EYES CLOSED. RESP ARE EVEN AND UNLABORED AT THIS TIME. TELE MONITOR IN PLACE. IVF PATENT AND INFUSING VIA LEFT FOREARM AT 80CC/HR. SITE APPEARS HEALTHY. CALL LIGHT IN REACH. WILL CONT TO MONITOR.
--- NOTE | 2018-10-08 04:11 | NUR ---
PATIENT RESTING IN BED AT THIS TIME. NO COMPLAINTS AT THIS TIME. TELE MONITOR IN PLACE. VOIDING QS IN URINAL. IVF NS PATENT AND INFUSING AT 80CC/JHR. IV SITE TO LEFT FOREARM REMAINS HEALTHY. CALL LIGHT IN REACH. WILL CONT TO MONITOR.
[2018-10-08 04:19] VITALS: BP 135/74
[2018-10-08 05:18] LABS: HEMATOCRIT 39.9 % (39.0-50.0); HEMOGLOBIN 13.1 g/dl (14.0-18.0); IMMATURE GRANULOCYTES 0.7 % (0.0-5.0); MEAN CELL VOLUME 95.2 fL CALC (80.0-100.0); MEAN CORPUSCULAR HGB 31.3 pG CALC (26.0-32.0); MEAN CORPUSCULAR HGB CONC 32.8 g/L CALC (32.0-36.0); NEUT# 11.05 thou/uL (1.82-7.42); RED BLOOD COUNT 4.19 mill/uL (4.70-6.10); RED CELL DISTRI WIDTH 13.6 % (11.5-15.5)
[2018-10-08 06:16] LABS: ANION GAP 11 (6-22 (CALC)); BUN 20 mg/dL (8-23); BUN/CREATININE RATIO 25 (12-20 (CALC)); CARBON DIOXIDE 23 mmol/l (22-30); CHLORIDE 109 mmol/l (95-108); CREATININE 0.8 mg/dL (0.7-1.3); GFR > 60 ML/MIN (>=60 (CALC)); GFR FOR AFR.AMER. > 60 ML/MIN (>=60 (CALC)); POTASSIUM 4.3 mmol/l (3.5-5.1); SODIUM 139 mmol/l (137-146)
[2018-10-08 07:25] VITALS: BP 161/93
--- NOTE | 2018-10-08 08:06 | NUR ---
PT IS SITTING IN RECLINER. ASSESSMENT DONE. TELE IN PLACE. PT IS A&O X3. PT DENIES PAIN. PT DENIES NEEDS AT THIS TIME. CALL LIGHT IN REACH.
[2018-10-08] MEDS ORDERED: LEVAQUIN750 MG PO (10:05)
[2018-10-08] MEDS ORDERED: PREDNISONE20 MG PO (10:05)
[2018-10-08 10:07] VITALS: BP 146/85
--- NOTE | 2018-10-08 11:43 | NUR ---
Discharge instructions given. Patient verbalizes understanding of same. Discharged in stable condition via Wheelchair to Home with staff. All belongings sent with pt.
== END 2018-10-08 11:44 | disposition home or self-care (01) ==
LOC: MS2 11:04
PROVIDERS: ADMIT Internal Medicine Geriatric Medicine; ATTEND Internal Medicine Geriatric Medicine
DX: J47.9 Bronchiectasis, uncomplicated (principal); R06.03 Acute respiratory distress; J30.9 Allergic rhinitis, unspecified; I10 Essential (primary) hypertension; I25.10 Atherosclerotic heart disease of native coronary artery without angina pectoris; E78.5 Hyperlipidemia, unspecified; Z95.1 Presence of aortocoronary bypass graft; Z95.2 Presence of prosthetic heart valve; Z95.5 Presence of coronary angioplasty implant and graft
CPT/HCPCS: Q9967

== ENCOUNTER 2018-10-24 19:32 | Observation (INO) | payer MEDICARE ==
[~2018-10-24] VITALS: Ht 175.3 cm; Wt 69.5 kg
[2018-10-24] MEDS ORDERED: DICLOFENAC SODI75 MG PO (20:04)
[2018-10-24] MEDS ORDERED: TIZANIDINE HCL4 M1 PO (20:05)
[2018-10-24 20:17] LABS: HEMATOCRIT 41.5 % (39.0-50.0); HEMOGLOBIN 13.6 g/dl (14.0-18.0); IMMATURE GRANULOCYTES 0.4 % (0.0-5.0); MEAN CELL VOLUME 95.8 fL CALC (80.0-100.0); MEAN CORPUSCULAR HGB 31.4 pG CALC (26.0-32.0); MEAN CORPUSCULAR HGB CONC 32.8 g/L CALC (32.0-36.0); NEUT# 4.38 thou/uL (1.82-7.42); RED BLOOD COUNT 4.33 mill/uL (4.70-6.10); RED CELL DISTRI WIDTH 14.3 % (11.5-15.5)
[2018-10-24 20:34] LABS: ALBUMIN 3.8 g/dL (3.2-5.0); ALKALINE PHOSPHATASE 96 u/l (38-126); ANION GAP 14 (6-22 (CALC)); BUN 18 mg/dL (8-23); BUN/CREATININE RATIO 19 (12-20 (CALC)); CARBON DIOXIDE 23 mmol/l (22-30); CHLORIDE 104 mmol/l (95-108); GFR > 60 ML/MIN (>=60 (CALC)); GFR FOR AFR.AMER. > 60 ML/MIN (>=60 (CALC)); POTASSIUM 4.3 mmol/l (3.5-5.1); SODIUM 136 mmol/l (137-146); TOTAL PROTEIN 6.7 g/dL (6.3-8.2)
[2018-10-24 20:35] LABS: BILIRUBIN, TOTAL 0.8 mg/dL (0.0-1.4); SGOT/AST 30 u/l (19-48)
[2018-10-24 20:46] LABS: MYOGLOBIN 47 ng/mL (0 - 121)
[2018-10-24 22:06] LABS: URINE BILIRUBIN - DIPSTICK NEGATIVE (NEGATIVE); URINE BLOOD DIPSTICK NEGATIVE (NEGATIVE); URINE COLOR YELLOW; URINE GLUCOSE - DIPSTICK NEGATIVE (NEGATIVE); URINE KETONE NEGATIVE (NEGATIVE); URINE LEUK ESTERASE NEGATIVE (NEGATIVE); URINE NITRITE - DIPSTICK NEGATIVE (Negative); URINE PROTEIN - DIPSTICK NEGATIVE (NEG-TRACE); URINE UROBILINOGEN - DIPSTICK 0.2 E.U./dL (0.2)
[2018-10-25 00:55] VITALS: BP 155/83
[2018-10-25 04:35] VITALS: BP 135/82
[2018-10-25] MEDS ORDERED: LIPITOR40 M1 PO (05:40)
[2018-10-25 07:53] VITALS: BP 172/108
[2018-10-25 10:26] VITALS: BP 138/83
== END 2018-10-25 13:39 | disposition home or self-care (01) ==
LOC: ED 19:32 → ED-I 23:50 → ED 10-25 00:14 → MS2 10-25 00:15
PROVIDERS: Emergency Medicine; ADMIT Internal Medicine Geriatric Medicine; ATTEND Internal Medicine Geriatric Medicine
DX: I11.0 Hypertensive heart disease with heart failure (principal); I50.9 Heart failure, unspecified; R06.03 Acute respiratory distress; J47.9 Bronchiectasis, uncomplicated; J30.9 Allergic rhinitis, unspecified; K21.9 Gastro-esophageal reflux disease without esophagitis; E78.5 Hyperlipidemia, unspecified; I25.10 Atherosclerotic heart disease of native coronary artery without angina pectoris; I25.2 Old myocardial infarction; Z95.1 Presence of aortocoronary bypass graft; Z95.5 Presence of coronary angioplasty implant and graft; Z95.2 Presence of prosthetic heart valve; Z95.810 Presence of automatic (implantable) cardiac defibrillator
CPT/HCPCS: Q9967

== ENCOUNTER 2018-12-31 10:35 | Observation (INO) | payer MEDICARE ==
[~2018-12-31] VITALS: Ht 175.3 cm; Wt 71.7 kg
[~2018-12-31 10:35] MED LIST changes: +DICLOFENAC SODI75 MG PO; +TIZANIDINE HCL4 M1 PO
[2018-12-31 10:55] VITALS: BP 126/76
[2018-12-31 11:22] LABS: HEMATOCRIT 37.6 % (39.0-50.0); HEMOGLOBIN 12.1 g/dl (14.0-18.0); IMMATURE GRANULOCYTES 0.4 % (0.0-5.0); MEAN CELL VOLUME 95.2 fL CALC (80.0-100.0); MEAN CORPUSCULAR HGB 30.6 pG CALC (26.0-32.0); MEAN CORPUSCULAR HGB CONC 32.2 g/L CALC (32.0-36.0); NEUT# 6.58 thou/uL (1.82-7.42); RED BLOOD COUNT 3.95 mill/uL (4.70-6.10); RED CELL DISTRI WIDTH 14.4 % (11.5-15.5)
[2018-12-31 11:40] LABS: ALBUMIN 3.6 g/dL (3.2-5.0); ALKALINE PHOSPHATASE 162 u/l (38-126); ANION GAP 12 (6-22 (CALC)); BILIRUBIN, TOTAL 0.6 mg/dL (0.0-1.4); BUN 22 mg/dL (8-23); BUN/CREATININE RATIO 22 (12-20 (CALC)); CARBON DIOXIDE 27 mmol/l (22-30); CHLORIDE 108 mmol/l (95-108); GFR > 60 ML/MIN (>=60 (CALC)); GFR FOR AFR.AMER. > 60 ML/MIN (>=60 (CALC)); POTASSIUM 4.7 mmol/l (3.5-5.1); SGOT/AST 27 u/l (19-48); SODIUM 142 mmol/l (137-146); TOTAL PROTEIN 6.4 g/dL (6.3-8.2)
[2018-12-31 13:02] LABS: URINE BILIRUBIN - DIPSTICK NEGATIVE (NEGATIVE); URINE BLOOD DIPSTICK NEGATIVE (NEGATIVE); URINE COLOR YELLOW; URINE GLUCOSE - DIPSTICK NEGATIVE (NEGATIVE); URINE KETONE NEGATIVE (NEGATIVE); URINE LEUK ESTERASE NEGATIVE (NEGATIVE); URINE NITRITE - DIPSTICK NEGATIVE (Negative); URINE PROTEIN - DIPSTICK NEGATIVE (NEG-TRACE); URINE SPECIFIC GRAVITY 1.015; URINE UROBILINOGEN - DIPSTICK 0.2 E.U./dL (0.2)
[2018-12-31] MEDS ORDERED: PROCTOZONE-HC2.5 % TOP (13:36)
[2018-12-31] MEDS ORDERED: VENTOLIN HFA IN (13:38)
[2018-12-31] MEDS ORDERED: COREG6.25 MG PO (13:40)
[2018-12-31 15:00] VITALS: BP 142/63
[2018-12-31 19:07] VITALS: BP 139/74
[2019-01-01 05:20] VITALS: BP 134/63
[2019-01-01 05:41] LABS: ALBUMIN 2.9 g/dL (3.2-5.0); ALKALINE PHOSPHATASE 138 u/l (38-126); ANION GAP 9 (6-22 (CALC)); BILIRUBIN, TOTAL 0.4 mg/dL (0.0-1.4); BUN 19 mg/dL (8-23); BUN/CREATININE RATIO 22 (12-20 (CALC)); CARBON DIOXIDE 26 mmol/l (22-30); CHLORIDE 109 mmol/l (95-108); CREATININE 0.8 mg/dL (0.7-1.3); GFR > 60 ML/MIN (>=60 (CALC)); GFR FOR AFR.AMER. > 60 ML/MIN (>=60 (CALC)); POTASSIUM 4.5 mmol/l (3.5-5.1); SGOT/AST 23 u/l (19-48); SODIUM 140 mmol/l (137-146); TOTAL PROTEIN 5.4 g/dL (6.3-8.2)
[2019-01-01 07:52] VITALS: BP 135/69
[2019-01-01 07:57] VITALS: BP 135/69
[2019-01-01] MEDS ORDERED: LORTAB 7.57.5 MG PO (15:35)
== END 2019-01-01 16:50 | disposition home or self-care (01) ==
LOC: MS2 10:35
PROVIDERS: ADMIT Internal Medicine Geriatric Medicine; ATTEND Internal Medicine Geriatric Medicine
DX: S92.325A Nondisplaced fracture of second metatarsal bone, left foot, initial encounter for closed fracture (principal); S92.335A Nondisplaced fracture of third metatarsal bone, left foot, initial encounter for closed fracture; I11.0 Hypertensive heart disease with heart failure; I50.9 Heart failure, unspecified; I25.10 Atherosclerotic heart disease of native coronary artery without angina pectoris; J44.9 Chronic obstructive pulmonary disease, unspecified; E78.5 Hyperlipidemia, unspecified; M19.90 Unspecified osteoarthritis, unspecified site; K21.9 Gastro-esophageal reflux disease without esophagitis; I25.2 Old myocardial infarction; Y92.009 Unspecified place in unspecified non-institutional (private) residence as the place of occurrence of the external cause; W01.0XXA Fall on same level from slipping, tripping and stumbling without subsequent striking against object, initial encounter; Z95.1 Presence of aortocoronary bypass graft; Z95.2 Presence of prosthetic heart valve; Z95.5 Presence of coronary angioplasty implant and graft; Z79.02 Long term (current) use of antithrombotics/antiplatelets; Z95.0 Presence of cardiac pacemaker

== ENCOUNTER 2019-03-06 21:07 | Emergency (ER) | payer MEDICARE ==
[~2019-03-06] VITALS: Ht 175.3 cm; Wt 68.6 kg
[~2019-03-06 21:07] MED LIST changes: +COREG6.25 MG PO; +LORTAB 7.57.5 MG PO; +PROCTOZONE-HC2.5 % TOP
[2019-03-06 22:12] LABS: IMMATURE GRANULOCYTES 0.7 % (0.0-5.0); MEAN CELL VOLUME 92.8 fL CALC (80.0-100.0); MEAN CORPUSCULAR HGB CONC 32.4 g/L CALC (32.0-36.0); NEUT# 9.65 thou/uL (1.82-7.42); RED BLOOD COUNT 4.86 mill/uL (4.70-6.10); RED CELL DISTRI WIDTH 14.7 % (11.5-15.5)
[2019-03-06 22:18] LABS: HEMOGLOBIN 14.6 g/dl (14.0-18.0)
[2019-03-06 22:19] LABS: HEMATOCRIT 45.1 % (39.0-50.0)
[2019-03-06 22:23] LABS: ALKALINE PHOSPHATASE 89 u/l (38-126); AMYLASE 56 u/l (30-110); ANION GAP 15 (6-22 (CALC)); BILIRUBIN, TOTAL 0.5 mg/dL (0.0-1.4); BUN 31 mg/dL (8-23); BUN/CREATININE RATIO 36 (12-20 (CALC)); CARBON DIOXIDE 24 mmol/l (22-30); CHLORIDE 103 mmol/l (95-108); CREATININE 0.9 mg/dL (0.7-1.3); GFR > 60 ML/MIN (>=60 (CALC)); GFR FOR AFR.AMER. > 60 ML/MIN (>=60 (CALC)); LIPASE 111 u/l (23-300); POTASSIUM 4.1 mmol/l (3.5-5.1); SGOT/AST 21 u/l (19-48); SODIUM 138 mmol/l (137-146)
[2019-03-06 22:25] LABS: ALBUMIN 3.8 g/dL (3.2-5.0); TOTAL PROTEIN 6.7 g/dL (6.3-8.2)
[2019-03-07 01:10] VITALS: BP 173/95
== END 2019-03-07 01:10 ==
LOC: ED 21:07
DX: K82.8 Other specified diseases of gallbladder (principal); I10 Essential (primary) hypertension; I25.10 Atherosclerotic heart disease of native coronary artery without angina pectoris; J44.9 Chronic obstructive pulmonary disease, unspecified; I25.2 Old myocardial infarction; Z86.73 Personal history of transient ischemic attack (TIA), and cerebral infarction without residual deficits; Z95.1 Presence of aortocoronary bypass graft; Z95.5 Presence of coronary angioplasty implant and graft; Z87.01 Personal history of pneumonia (recurrent); Z95.0 Presence of cardiac pacemaker
CPT/HCPCS: Q9967

== ENCOUNTER 2019-04-21 14:47 | Inpatient (IN) | payer MEDICARE ==
[~2019-04-21] VITALS: Ht 175.3 cm; Wt 64.0 kg
[2019-04-21 15:17] LABS: HEMATOCRIT 40.2 % (39.0-50.0); HEMOGLOBIN 13.1 g/dl (14.0-18.0); IMMATURE GRANULOCYTES 0.6 % (0.0-5.0); MEAN CELL VOLUME 89.5 fL CALC (80.0-100.0); MEAN CORPUSCULAR HGB 29.2 pG CALC (26.0-32.0); MEAN CORPUSCULAR HGB CONC 32.6 g/L CALC (32.0-36.0); NEUT# 15.03 thou/uL (1.82-7.42); RED BLOOD COUNT 4.49 mill/uL (4.70-6.10); RED CELL DISTRI WIDTH 14.1 % (11.5-15.5)
[2019-04-21 15:31] LABS: ALBUMIN 3.8 g/dL (3.2-5.0); ALKALINE PHOSPHATASE 112 u/l (38-126); ANION GAP 15 (6-22 (CALC)); BILIRUBIN, TOTAL 0.7 mg/dL (0.0-1.4); BUN 18 mg/dL (8-23); BUN/CREATININE RATIO 22 (12-20 (CALC)); CARBON DIOXIDE 20 mmol/l (22-30); CHLORIDE 105 mmol/l (95-108); CREATININE 0.8 mg/dL (0.7-1.3); GFR > 60 ML/MIN (>=60 (CALC)); GFR FOR AFR.AMER. > 60 ML/MIN (>=60 (CALC)); POTASSIUM 3.8 mmol/l (3.5-5.1); SGOT/AST 29 u/l (19-48); SODIUM 137 mmol/l (137-146); TOTAL PROTEIN 6.7 g/dL (6.3-8.2)
[2019-04-21 15:43] LABS: MYOGLOBIN 35 ng/mL (0 - 121)
[2019-04-21] MEDS ORDERED: TOPROL XL25 MG PO (16:23)
[2019-04-21] MEDS ORDERED: CLOPIDOGREL75 MG PO (16:24)
[2019-04-21 18:20] VITALS: BP 115/67
[2019-04-21 22:25] LABS: URINE BILIRUBIN - DIPSTICK NEGATIVE (NEGATIVE); URINE BLOOD DIPSTICK NEGATIVE (NEGATIVE); URINE COLOR YELLOW; URINE GLUCOSE - DIPSTICK 100 mg/dL (NEGATIVE); URINE KETONE NEGATIVE (NEGATIVE); URINE LEUK ESTERASE NEGATIVE (NEGATIVE); URINE NITRITE - DIPSTICK NEGATIVE (Negative); URINE PROTEIN - DIPSTICK NEGATIVE (NEG-TRACE); URINE UROBILINOGEN - DIPSTICK 0.2 E.U./dL (0.2)
[2019-04-22 05:05] VITALS: BP 157/80
[2019-04-22 07:16] VITALS: BP 123/75
[2019-04-22 15:31] VITALS: BP 121/73
[2019-04-22 18:44] VITALS: BP 110/67
[2019-04-23 04:36] VITALS: BP 130/84
[2019-04-23 05:03] LABS: HEMATOCRIT 35.5 % (39.0-50.0); HEMOGLOBIN 11.6 g/dl (14.0-18.0); MEAN CELL VOLUME 89.4 fL CALC (80.0-100.0); MEAN CORPUSCULAR HGB 29.2 pG CALC (26.0-32.0); MEAN CORPUSCULAR HGB CONC 32.7 g/L CALC (32.0-36.0); RED BLOOD COUNT 3.97 mill/uL (4.70-6.10); RED CELL DISTRI WIDTH 14.6 % (11.5-15.5)
[2019-04-23 05:18] LABS: ANION GAP 12 (6-22 (CALC)); BUN 20 mg/dL (8-23); BUN/CREATININE RATIO 27 (12-20 (CALC)); CARBON DIOXIDE 22 mmol/l (22-30); CHLORIDE 107 mmol/l (95-108); CREATININE 0.8 mg/dL (0.7-1.3); GFR > 60 ML/MIN (>=60 (CALC)); GFR FOR AFR.AMER. > 60 ML/MIN (>=60 (CALC)); SODIUM 138 mmol/l (137-146)
[2019-04-23 07:15] VITALS: BP 101/84
[2019-04-23 15:45] VITALS: BP 132/71
[2019-04-23 19:00] VITALS: BP 129/74
[2019-04-24 04:09] VITALS: BP 136/76
[2019-04-24] MEDS ORDERED: LEVAQUIN750 MG PO (09:20)
[2019-04-24] MEDS ORDERED: PREDNISONE10 MG PO (09:21)
[2019-04-24 09:25] VITALS: BP 137/77
[2019-04-24] MEDS ORDERED: IPRATROPIU0.5 MG/3 M IN (13:27)
== END 2019-04-24 14:08 | disposition home or self-care (01) | DRG 190 ==
LOC: ED 14:47 → ED-I 16:36 → ED 16:46 → MS2 16:47
PROVIDERS: Emergency Medicine; ADMIT Internal Medicine; ATTEND Internal Medicine
DX: J44.1 Chronic obstructive pulmonary disease with (acute) exacerbation (principal); J18.9 Pneumonia, unspecified organism; I50.22 Chronic systolic (congestive) heart failure; J44.0 Chronic obstructive pulmonary disease with (acute) lower respiratory infection; I11.0 Hypertensive heart disease with heart failure; I25.10 Atherosclerotic heart disease of native coronary artery without angina pectoris; K59.00 Constipation, unspecified; I25.2 Old myocardial infarction; Z87.891 Personal history of nicotine dependence; Z95.1 Presence of aortocoronary bypass graft; Z86.73 Personal history of transient ischemic attack (TIA), and cerebral infarction without residual deficits; Z95.5 Presence of coronary angioplasty implant and graft; Z95.810 Presence of automatic (implantable) cardiac defibrillator; R05 Cough
CPT/HCPCS: G0378